=== PATIENT | female | born 1970 | race Caucasian/White ===

== ENCOUNTER → 2018-04-29 | Outpatient (CLI) | payer BC ==
[2018-04-29 13:51] LABS: Basophils % (A) 1 %; Eosinophils # (A) 0.1 k/uL (0-0.7); Eosinophils % (A) 2 %; HCT 43.4 % (34.0-46.0); HGB 13.9 gm/dL (11.4-16.0); Lymphocytes # (A) 1.5 k/uL (1.0-4.8); Lymphocytes % (A) 22 %; MCH 29.6 pg (25.0-35.0); MCHC 32.1 g/dL (31.0-37.0); MCV 92.1 fL (80.0-100.0); Mean Platelet Volume 8.5; Monocytes # (A) 0.2 k/uL (0-1.0); Monocytes % (A) 4 %; Neutrophils # (A) 4.7 k/uL (1.3-7.7); Neutrophils % (A) 71 %; Platelet Count 165 k/uL (150-450); RBC 4.71 m/uL (3.80-5.40); RDW 13.7 % (11.5-15.5); WBC 6.7 k/uL (3.8-10.6)
== END | disposition home or self-care (01) ==
LOC: LABPAT 12:54
PROVIDERS: ATTEND Obstetrics & Gynecology
DX: Z01.812 Encounter for preprocedural laboratory examination (principal)
CPT/HCPCS: 85025

== ENCOUNTER 2018-05-10 06:20 | Day surgery (SDC) | payer BC ==
[2018-05-06 18:05] VITALS: BMI 39.1
--- NOTE | 2018-05-09 16:10 | P.HPOB ---
History of Present Illness H&P Date: 05/09/18 Chief Complaint: Menorrhagia Gina is a 48-year-old female with very heavy vaginal bleeding. Symptoms have been going on for an extended period of time and they're becoming so difficult and heavy that she is unable to function much of the time. Symptoms have progressively worsened dramatically over the last 6 months and her activities of daily daily living are severely impacted. She is scheduled for a D&C with hysteroscopy NovaSure ablation to try and eliminate her symptoms as well as verified no other pathology. Due to the fact that she is a smoker she is unable to do hormone therapy. Risks/benefits/alternatives to a D&C with hysteroscopy and NovaSure were explained to the patient in detail and all questions were answered for her to proceeding to the operating room. She is aware of risk of perforation with potential bowel injury as well as potential other issues including pain and bleeding and infection due to the procedure. Past Medical History Additional Past Medical History / Comment(s): HEAVY MENSES, SEVERE CRAMPS. History of Any Multi-Drug Resistant Organisms: None Reported Past Surgical History: Cholecystectomy Additional Past Surgical History / Comment(s): CERVIAL CONIZATION. Past Anesthesia/Blood Transfusion Reactions: Motion Sickness Smoking Status: Current every day smoker - Past Family History Father Family Medical History: Cancer Mother Family Medical History: Deep Vein Thrombosis (DVT) Medications and Allergies Home Medications Medication Instructions Recorded Confirmed Type Ibuprofen [Motrin Ib] 400 mg PO Q6H PRN 05/06/18 05/06/18 History Allergies Allergy/AdvReac Type Severity Reaction Status Date / Time amoxicillin Allergy Nausea & Verified 05/06/18 17:47 Vomiting Fish Containing Products Allergy Rash/Hives Verified 05/06/18 17:47 [Fish] red dye Allergy TOLD TO Verified 05/06/18 17:47 AVOID Exam Osteopathic Statement: *. No significant issues noted on an osteopathic structural exam other than those noted in the History and Physical/Consult. - OBG Physical Exam Breast: both: normal (no masses) Abdomen: bowel sounds normal, no diffuse tenderness, no bruit present, no guarding noted, no hepatomegaly, no splenomegaly, no mass Vulva: both: normal Vagina: normal moisture, no discharge Cervix: no lesion, no discharge Uterus: normal size, normal contour Adnexa: both: normal Anus/Rectum: normal perianal skin, no rectal mass, no hemorrhoids, heme negative
[~2018-05-10 06:20] MED LIST: DEXAMETHASONE SOD PHOSPHATE 10 MG/ML 1 ML VIAL IV ONE; LACTATED RINGERS 1,000 ML IV SCH; LIDOCAINE 1% 20 ML VIAL (10MG/ML) FOR IV START INTRADERMA PRN; MIDAZOLAM 2 MG/2 ML VIAL IV PRN; Pre Op ABX Message 1 EACH MISC MISCELLANE ONE; SCOPOLAMINE 1.5MG/72HR PATCH TRANSDERM ONE
[2018-05-10] MEDS: ONDANSETRON 4 MG/2 ML VIAL IVP ONE ×2 (06:33→08:24)
[2018-05-10] MEDS ORDERED: PROPOFOL 10 MG/ML 20 ML VIAL IV ONE (07:26)
[2018-05-10] MEDS ORDERED: fentaNYL (PF) 50 MCG/ML 2 ML AMP ONE (07:26)
[2018-05-10] MEDS ORDERED: MIDAZOLAM 2 MG/2 ML VIAL ONE (07:26)
[2018-05-10] MEDS ORDERED: LIDOCAINE 1% INJ 10MG/ML (20 ML MDV) ONE (07:26)
--- NOTE | 2018-05-10 07:57 | P.OP ---
Date of Procedure: 05/10/18 Preoperative Diagnosis: Menorrhagia Postoperative Diagnosis: Same Procedure(s) Performed: D&C with hysteroscopy and NovaSure Anesthesia: ADELAIDA Surgeon: Emre Calderón Estimated Blood Loss (ml): 5 Pathology: other (Uterine curettings) Condition: stable Disposition: same day Operative Findings: Proliferative endometrium and suspected polyp Description of Procedure: Patient was taken to the operating suite where a general anesthetic was found be adequate. She was prepped and draped in the normal sterile fashion and placed in dorsal lithotomy position. Initially weighted speculum was inserted into the vagina and anterior lip of the cervix was identified and grasped with a single-tooth tenaculum. Cervix was then dilated and uterus was sounded to 8 cm. Once this was accomplished camera was inserted. Proliferative endometrium and polyp were noted. Camera was then removed and sharp curettings of endometrium were obtained and sent to pathology for evaluation. Once this was accomplished NovaSure systems inserted with a length of 4 and a width of 2.5 it was tested and enabled and activated. The burn lasted for 2 minutes. At the conclusion of the burn NovaSure system was removed and camera was reinserted with excellent burn noted. Sponge, lap, needle counts were then all correct 2 and all other instruments removed from the vagina. Patient was then taken to the recovery room in stable and satisfactory condition. Plan - Discharge Summary New Discharge Prescriptions: New Ibuprofen [Motrin] 600 mg PO Q6HR PRN #30 tab PRN Reason: Pain No Action Ibuprofen [Motrin Ib] 400 mg PO Q6H PRN PRN Reason: Pain Discharge Medication List Ibuprofen [Motrin Ib] 400 mg PO Q6H PRN 05/06/18 [History] Ibuprofen [Motrin] 600 mg PO Q6HR PRN #30 tab 05/10/18 [Rx] Follow up Appointment(s)/Referral(s): Emre Calderón DO [Doctor of Osteopathic Medicine] - 1 Week Activity/Diet/Wound Care/Special Instructions: No heavy lifting, limit stairs and driving and pelvic rest tonight. If any high temperatures, heavy bleeding, or severe pain call the office
[2018-05-10 08:07] VITALS: TEMP 97
[2018-05-10] MEDS: HYDROmorphone 0.5 MG/0.5 ML SYRINGE IVP PRN ×2 (08:24→08:28)
[2018-05-10] MEDS ORDERED: KETOROLAC 30 MG/ML 1 ML VIAL IVP ONE (08:24)
[2018-05-10] MEDS ORDERED: LACTATED RINGERS 1,000 ML IV ONE (08:33)
[2018-05-10 09:00] VITALS: RESP 18
[2018-05-10] MEDS ORDERED: fentaNYL (PF) 50 MCG/ML 2 ML AMP IVP ONE (09:20)
[2018-05-10] MEDS ORDERED: ONDANSETRON 4 MG/2 ML VIAL IVP ONE (10:14)
[2018-05-10 10:56] VITALS: BP 156/75; PULSE 50
== END 2018-05-10 11:44 | disposition home or self-care (01) ==
LOC: OR 06:20
PROVIDERS: ATTEND Obstetrics & Gynecology
DX: N92.0 Excessive and frequent menstruation with regular cycle (principal); Z88.0 Allergy status to penicillin; Z91.013 Allergy to seafood; Z91.09 Other allergy status, other than to drugs and biological substances; F17.210 Nicotine dependence, cigarettes, uncomplicated
CPT/HCPCS: 81025; 88305; 58563; J2250; J1100; J2405; J2001; J3010; J1885; J2704; J1170

== ENCOUNTER 2019-06-04 16:45 | Emergency (ER) | payer BC, OTHER ==
[2019-06-04 16:52] VITALS: BP 138/81; PULSE 60; RESP 16; TEMP 98.1
[2019-06-04] MEDS ORDERED: DIPH,PERTUS(ACELL)TETVAC-LF 0.5 ML VIAL IM ONE (17:00)
--- NOTE | 2019-06-04 17:13 | ED ---
Wound/Laceration HPI - General Chief Complaint: Wound/Laceration Stated Complaint: [facility] - rt thumb lac Time Seen by Provider: 06/04/19 16:47 Source: patient Mode of arrival: ambulatory Limitations: no limitations - History of Present Illness Initial Comments: 49-year-old female presenting today for chief complaint of laceration to the right thumb. She states she cut her thumb on a piece of dialysis equipment. She denies any blood exposures. Patient states it was a large piece of metal denies foreign body. Patient's age is unsure if any suture repair presents emergency department for evaluation. Unsure of last tetanus. Denies any limitations in range of motion or strength of the digit. Patient states bleeding is controlled. Patient was sent by her work for evaluation. Denies numbness tingling of sensation. - Related Data Home Medications Medication Instructions Recorded Confirmed Ibuprofen [Motrin Ib] 400 mg PO Q6H PRN 05/06/18 05/06/18 Previous Rx's Medication Instructions Recorded Ibuprofen [Motrin] 600 mg PO Q6HR PRN #30 tab 05/10/18 Allergies Allergy/AdvReac Type Severity Reaction Status Date / Time amoxicillin Allergy Nausea & Verified 06/04/19 16:52 Vomiting Fish Containing Products Allergy Rash/Hives Verified 06/04/19 16:52 [Fish] red dye Allergy TOLD TO Verified 06/04/19 16:52 AVOID Review of Systems ROS Statement: Those systems with pertinent positive or pertinent negative responses have been documented in the HPI. ROS Other: All systems not noted in ROS Statement are negative. Past Medical History Past Medical History: No Reported History History of Any Multi-Drug Resistant Organisms: None Reported Past Surgical History: No Surgical Hx Reported Past Psychological History: No Psychological Hx Reported Smoking Status: Current every day smoker Past Alcohol Use History: None Reported Past Drug Use History: None Reported General Exam - General Exam Comments Initial Comments: General: The patient is awake and alert, in no distress, and does not appear acutely ill. Eye: Pupils are equal, round and reactive to light, extra-ocular movements are intact. No nystagmus. There is normal conjunctiva bilaterally. No signs of icterus. Cardiovascular: There is a regular rate and rhythm. No murmur, rub or gallop is appreciated. Respiratory: Lungs are clear to auscultation, respirations are non-labored, breath sounds are equal. No wheezes, stridor, rales, or rhonchi. Musculoskeletal: Normal ROM, no tenderness. Strength 5/5. Sensation intact. Pulses equal bilaterally 2+. Neurological: A&O x 3. CN II-XII intact, There are no obvious motor or sensory deficits. Coordination appears grossly intact. Speech is normal. Skin: Skin is warm and dry and no rashes. 1 cm laceration, superfical, no tendon exposure on lateral aspect of right thumb. No active bleeding. Patient has full range of motion at the MTP DIP PIP joints of all 5 digits of the right hand. No decrease in strength all 5 out of 5. Joint was specifically isolated of the affected digit. Full sensation of both proximal distal to injury site. Capillary refill less than 3 seconds. Psychiatric: Cooperative, appropriate mood & affect, normal judgment. Limitations: no limitations Course Vital Signs 06/04/19 16:47 Temperature 98.1 F Pulse Rate 60 Respiratory 16 Rate Blood Pressure 138/81 O2 Sat by Pulse 98 Oximetry Procedures - Laceration Laceration #1 Consent Obtained: verbal consent Indication: laceration Site: hand Size (cm): 1 Description: linear Depth: simple, single layer Type of Sutures: nylon Size of Sutures: 5-0 Number of Sutures: 3 Technique: simple, interrupted Patient Tolerated Procedure: well, no complications Additional Comments: Given sized laceration patient was given option of lidocaine versus no local anesthetic. Patient preferred no lidocaine. Area was extensively cleansed with iodine and irrigated. Patient tolerate procedure well closed with 3 sutures. Medical Decision Making - Medical Decision Making 49-year-old female presenting for thumb laceration. No evidence of tendon injury on physical examination. Patient neurovascularly intact. Imaging studies negative for osseous injury or foreign body. Tetanus updated. An extensive cleansed and irrigated prior to closure. Patient tolerated procedure well wound edges approximated well. Return parameters and signs of infection discussed. Patient was discharged appearing well with instruction to follow-up in 7 days for suture removal. Disposition Clinical Impression: Laceration of right thumb, Injury of right thumb Disposition: HOME SELF-CARE Condition: Good Instructions (If sedation given, give patient instructions): Care For Your Stitches (ED), Finger Laceration (ED) Additional Instructions: Please use medication as discussed. Please follow-up for suture removal in 7 days. Please return to emergency room if the symptoms increase or worsen or for any other concerns. Is patient prescribed a controlled substance at d/c from ED?: No Referrals: Iris Hernandez MD [Primary Care Provider] - 1-2 days Time of Disposition: 17:12
--- NOTE | 2019-06-04 17:14 | XR ---
PROCEDURE: XR finger RT - 2V DATE AND TIME: 06/04/2019 5:07 PM CLINICAL INDICATION: [facility]; thumb laceration TECHNIQUE: Department protocol COMPARISON: None FINDINGS: There is no fracture or malalignment. The soft tissues are unremarkable. No radiopaque foreign bodies. No soft tissue emphysema. IMPRESSION: NO ACUTE PROCESS.
== END 2019-06-04 17:30 | disposition home or self-care (01) ==
LOC: EC 16:45
DX: S61.021A Laceration with foreign body of right thumb without damage to nail, initial encounter (principal); F17.200 Nicotine dependence, unspecified, uncomplicated; Z88.0 Allergy status to penicillin; Z91.013 Allergy to seafood; Z91.048 Other nonmedicinal substance allergy status; Z23 Encounter for immunization; Y92.69 Other specified industrial and construction area as the place of occurrence of the external cause; Y99.0 Civilian activity done for income or pay; W45.8XXA Other foreign body or object entering through skin, initial encounter
CPT/HCPCS: 12001; 90471; 90715; 99283

== ENCOUNTER → 2020-05-13 | Outpatient (CLI) | payer OTHER ==
--- NOTE | 2020-05-13 12:55 | XR ---
EXAMINATION TYPE: XR chest 2V DATE OF EXAM: 05/13/2020 COMPARISON: NONE HISTORY: R06.02, shortness of breath TECHNIQUE: Frontal and lateral views of the chest are obtained. FINDINGS: There is no focal air space opacity, pleural effusion, or pneumothorax seen. The cardiac silhouette size is within normal limits. The osseous structures are intact. IMPRESSION: No acute cardiopulmonary process.
[2020-05-13 14:12] LABS: Basophils % (A) 0 %; Eosinophils # (A) 0.2 k/uL (0-0.7); Eosinophils % (A) 3 %; HCT 44.9 % (34.0-46.0); HGB 14.7 gm/dL (11.4-16.0); Lymphocytes # (A) 1.3 k/uL (1.0-4.8); Lymphocytes % (A) 22 %; MCH 30.3 pg (25.0-35.0); MCHC 32.6 g/dL (31.0-37.0); MCV 92.9 fL (80.0-100.0); Mean Platelet Volume 10.2; Monocytes # (A) 0.2 k/uL (0-1.0); Monocytes % (A) 4 %; Neutrophils # (A) 4.1 k/uL (1.3-7.7); Neutrophils % (A) 71 %; Platelet Count 157 k/uL (150-450); RBC 4.83 m/uL (3.80-5.40); RDW 13.2 % (11.5-15.5); WBC 5.9 k/uL (3.8-10.6)
[2020-05-13 19:40] LABS: African American GFR (CKD) 118.7 (60.0-200.0); Albumin 3.7 g/dL (3.80-4.90); Albumin/Globulin Ratio 2.06 (1.60-3.17); Anion Gap 4.8 mmol/L (4.00-12.00); BUN/Creat Ratio 15.71 Ratio (12.00-20.00); Calcium 8.5 mg/dL (8.7-10.3); Carbon Dioxide 27.2 mmol/L (21.6-31.8); Globulin 1.8 g/dL (1.6-3.3); Non-African American GFR(CKD) 102.5 (60.0-200.0); Potassium 4.4 mmol/L (3.5-5.5); Total Bilirubin 0.4 mg/dL (0.2-1.2); Total Protein 5.5 g/dL (6.2-8.2)
[2020-05-13 19:49] LABS: T4, Free (Free Thyroxine) 1.1 ng/dL (0.80-1.80)
== END | disposition home or self-care (01) ==
LOC: LABWHC1 11:45
PROVIDERS: ATTEND Internal Medicine
DX: R06.02 Shortness of breath (principal); I10 Essential (primary) hypertension; J44.9 Chronic obstructive pulmonary disease, unspecified; R73.9 Hyperglycemia, unspecified
CPT/HCPCS: 36415; 71046; 80053; 82306; 83036; 84439; 84443; 84481; 85025

== ENCOUNTER → 2022-10-24 | Outpatient (CLI) | payer OTHER ==
[2022-10-24 22:57] LABS: Basophils # (A) 0.03 X 10*3/uL (0.00-0.10); Basophils % (A) 0.5 %; Eosinophils # (A) 0.14 X 10*3/uL (0.04-0.35); Eosinophils % (A) 2.4 %; HCT 46.6 % (37.2-46.3); HGB 14.9 g/dL (12.0-15.0); Immature Grans, Automated 0.2 %; Lymphocytes # (A) 1.73 X 10*3/uL (0.90-5.00); MCH 29.8 pg (27.0-32.0); MCV 93.2 fL (80.0-97.0); Mean Platelet Volume 11.8 fL (9.5-12.2); Monocytes # (A) 0.34 X 10*3/uL (0.20-1.00); Monocytes % (A) 5.9 %; NRBC Per 100 WBC 0 /100 WBCS (0.0-0.0); Neutrophils # (A) 3.51 X 10*3/uL (1.80-7.70); Platelet Count 190 X 10*3/uL (140-440); RDW 13.2 % (11.5-14.5); WBC 5.76 X 10*3/uL (4.50-10.00)
[2022-10-24 23:38] LABS: African American GFR (CKD) 119.2 (60.0-200.0); Anion Gap 9.6 mmol/L (10.00-18.00); Blood Urea Nitrogen 12.1 mg/dL (9.0-27.0); Carbon Dioxide 25.9 mmol/L (20.0-27.5); Non-African American GFR(CKD) 102.9 (60.0-200.0); Potassium 4.5 mmol/L (3.5-5.5)
== END | disposition home or self-care (01) ==
LOC: LABPAT 16:05
PROVIDERS: ATTEND Obstetrics & Gynecology
DX: Z01.812 Encounter for preprocedural laboratory examination (principal); N92.1 Excessive and frequent menstruation with irregular cycle
CPT/HCPCS: 80051; 82565; 82947; 84520; 85025; 87086

== ENCOUNTER 2022-10-31 06:05 | Day surgery (SDC) | payer BC, OTHER ==
[~2022-10-31 06:05] MED LIST changes: -DEXAMETHASONE SOD PHOSPHATE 10 MG/ML 1 ML VIAL IV ONE; +DEXAMETHASONE SOD PHOSPHATE 4 MG/ML 1 ML VIAL IV ONE; -LACTATED RINGERS 1,000 ML IV SCH; +LIDOCAINE 1% (10MG/ML) FOR IV START INTRADERMA PRN; -LIDOCAINE 1% 20 ML VIAL (10MG/ML) FOR IV START INTRADERMA PRN; -MIDAZOLAM 2 MG/2 ML VIAL IV PRN; +ONDANSETRON 4 MG/2 ML VIAL IVP ONE; +SCOPOLAMINE 1 MG/72 HR PATCH TRANSDERM ONE; -SCOPOLAMINE 1.5MG/72HR PATCH TRANSDERM ONE
[2022-10-31] MEDS: LACTATED RINGERS 1,000 ML IV SCH (06:47)
[2022-10-31] MEDS ORDERED: HYDROmorphone 0.5 MG/0.5 ML SYRINGE IVP PRN (07:00)
[2022-10-31] MEDS ORDERED: LIDOCAINE 2% INJ 20 MG/ML (2 ML VIAL) ONE (07:24)
[2022-10-31] MEDS ORDERED: HYDROmorphone (PF) 1 MG/ML ONE (07:24)
[2022-10-31] MEDS ORDERED: NEOSTIGMINE 1 MG/ML 10 ML VIAL ONE (07:24)
[2022-10-31] MEDS ORDERED: SUCCINYLCHOLINE CHLORIDE 200 MG/10 ML VIAL IV ONE (07:24)
[2022-10-31] MEDS ORDERED: GLYCOPYRROLATE 0.2 MG/ML 2 ML VIAL ONE (07:24)
[2022-10-31] MEDS ORDERED: MIDAZOLAM 2 MG/2 ML VIAL ONE (07:24)
[2022-10-31] MEDS ORDERED: ACETAMINOPHEN IV (For NPO) 1,000 MG/100 ML VIAL ONE (07:24)
[2022-10-31] MEDS ORDERED: PROPOFOL 10 MG/ML 20 ML VIAL IV ONE (07:24)
[2022-10-31] MEDS ORDERED: fentaNYL (PF) 50 MCG/ML 2 ML AMP ONE (07:24)
[2022-10-31] MEDS ORDERED: ROCURONIUM 10 MG/ML (5 ML VIAL) IV ONE (07:24)
[2022-10-31] MEDS ORDERED: KETOROLAC 30 MG/ML 1 ML VIAL ONE (07:24)
[2022-10-31] MEDS ORDERED: SODIUM CHLORIDE 0.9% 50 ML with ceFAZolin 2,000 MG IV ONE ×4 (07:29)
[2022-10-31] MEDS ORDERED: BUPIVACAINE (PF) 0.25% 30 ML VIAL SQ ONE ×3 (07:50→09:35)
[2022-10-31] MEDS ORDERED: LACTATED RINGERS 1,000 ML IV ONE (09:34)
[2022-10-31] MEDS ORDERED: METOCLOPRAMIDE 5 MG/ML 2 ML VIAL IVP PRN (09:37)
[2022-10-31] MEDS ORDERED: Acetaminophen-Codeine 300-30mg TAB PO PRN ×2 (09:37)
[2022-10-31] MEDS ORDERED: IBUPROFEN 600 MG TAB PO PRN (09:37)
[2022-10-31] MEDS ORDERED: ONDANSETRON 4 MG/2 ML VIAL IVP PRN (09:37)
[2022-10-31] MEDS ORDERED: SIMETHICONE 80 MG CHEWABLE PO PRN (09:37)
[2022-10-31] MEDS ORDERED: diphenhydrAMINE 50 MG/ML 1 ML VIAL IVP PRN (09:37)
[2022-10-31] MEDS ORDERED: KETOROLAC 15 MG/ML 1 ML VIAL IVP PRN (09:37)
--- NOTE | 2022-10-31 09:54 | P.OP ---
Date of Procedure: 10/31/22 Preoperative Diagnosis: #1. Menometrorrhagia #2. Failed endometrial ablation Postoperative Diagnosis: Same plus #3. Fairly extensive omental adhesive disease Procedure(s) Performed: #1. Laparoscopic lysis of adhesions #2. Da Stephani robotically assisted laparoscopic hysterectomy with bilateral salpingectomy #3. Diagnostic cystoscopy Anesthesia: ADELAIDA Surgeon: Himanshu De La Rosa Hydraulic Dredge Operator #1: Michelle Novoa Estimated Blood Loss (ml): 50 IV fluids (ml): 900 Urine output (ml): 200 Pathology: other (Uterus and bilateral fallopian tubes) Condition: stable Disposition: PACU Operative Findings: Preoperative pelvic examination demonstrated a roughly 5 week anteverted mobile normal shaped uterus with normal adnexa bilaterally. Intraoperatively there was noted be fairly extensive adhesions between the omentum and the areas of previously placed laparoscopic ports from her laparoscopic cholecystectomy. I was able to safely place all of the ports for my case and then placed the camera and one of the lateral ports and take down the adhesions sharply with the monopolar cautery scissors which freed up the entire abdomen. In the pelvis, there was evidence of bilateral tubal ligation. The uterus appeared to be bulky and consistent with probable adenomyosis but otherwise there were no pathologic findings. The ovaries appeared normal bilaterally. Following the procedure, the bilateral ureteral jets were seen and the bladder appeared undamaged both from a cystoscopic and laparoscopic perspective. Description of Procedure: The patient was prepped and draped in usual fashion after general endotracheal anesthesia was administered by the anesthesiologist. A weighted speculum was placed and the bladder was catheterized with a Ambrocio catheter. The anterior lip the cervix was grasped with a single-tooth tenaculum and uterus sounded to approximately 8-9 cm. Serial dilation was carried out to admit the Vesicare uterine manipulator with a large cup. The manipulator was then placed in standard fashion without difficulty and attention turned to the abdomen. A site was selected in the midline just at the umbilicus where previous incision had been made allowing an 8 mm incision and the same scar. This allowed insertion of an optical da Stephani port under direct visualization without difficulty. A pneumoperitoneum was then infused and steep Trendelenburg positioning and employed. A site was selected approximately 10-12 cm lateral on the patient's right side and 2-3 cm inferior to the optical port where an 8 mm incision was made in the transverse plane allowing insertion of an 8 mm da Stephani port under direct visualization without difficulty. A similar port was placed in the left lower quadrant. A site was selected approximately 3-4 synovators above the optical port and equidistant from that port and the left lower quadrant port were 10 mm incision was made in the transverse plane allowing insertion of an optical port under direct visualization. Throughout the entire process it was clear that there were number of omental adhesions and this would create difficulty for the esol teacher assistant to help and also difficulty for visualization as some of them were draped in and around the optical port. As a result the scope was transferred to the left lower quadrant port and a monopolar laparoscopic cautery scissors placed into the right lower port. I was able to take down all of the adhesions at their abdominal wall insertion freeing all 4 ports entirely. The scissors were set aside and the robot was docked to the patient. The left arm was loaded with a [place] bipolar cautery scissors while the right arm was armed with a laparoscopic cautery scissors. I then presented to the console. There appeared to be a portion of fallopian tube invested on top of the ovary on the left side was removed sharply but was then discovered to have been a hemorrhagic ovarian cyst. A portion of the ovarian wall was likely sent with the specimen. The fimbriated end of the fallopian tube was then identified. There was a large gap in the fallopian tube where the entire isthmic portion was absent. The left fallopian tube was elevated and removed sharply with the cautery scissors and then the segment of fallopian tube removed through the esol teacher assistant port. A similar operation was carried out on the right side without difficulty. The utero-ovarian ligament on the left side was then cauterized thoroughly with the [place] bipolar cautery forceps and divided sharply with the cautery scissors. This dissection was carried up and through the round ligament on that side at which time the bladder flap was created across the midline and the dissection and reflection of the bladder begun. Uterine vasculature was then skeletonized to some extent and ultimately cauterized. Attention was then turned to the right side where similar operations were carried out. The bladder flap was connected and the bladder thoroughly reflected. The uterine vascular which was again skeletonized and the vessels identified and cauterized. Uterus was noted to be blanched at that time. I did return to the left side to make certain that the vessels on that side were adequately cauterized as well. At this point the vaginal cup was quite apparent and the vagina was packed with a laparotomy sponge. Using the cautery scissors, the vaginal cuff was opened up along the margin of the cervical cup circumferentially to divide the uterus from the patient. The uterine manipulator unfortunately itself from the uterus. As a result, a ring forceps was passed through the apex of the vagina and the cervix and guided into its grasp allowing it to be removed without further difficulty. The scissors were replaced with a laparoscopic suturing device and a stitch of 0 Stratafix was passed into the abdomen. The stitch was utilized to close the vaginal cuff from the right side to the left side cinching down each pass of the stitch in standard fashion with 2 stitches brought backwards towards the midline from the left side. The stitch was then removed from the abdomen. Suction irrigation was carried out and hemostasis appeared to be excellent. I then returned to the patient and remove the Ambrocio catheter, placed a rigid cystoscope and filled the bladder with normal saline. The dome of the bladder was noted to be normal from both laparoscopic and hysteroscopic perspective. The bilateral ureteral elixir seen to be peristalsing. The scope was removed and the catheter replaced. The robot was undocked and all the ports were removed. The pneumoperitoneum was thoroughly evacuated through the port sites and the incisions were closed with interrupted subcuticular stitches of 4-0 Vicryl followed by half-inch Steri- Strips placed with Mastisol. The 4 sites were infused with a total of 10 mL of half percent Marcaine without epinephrine, equally divided between the 4 sites. All sponge, instrument, needle counts were correct. Estimated blood loss for the case was approximately 50 mL. There were no complications. The patient tolerated the procedure well and proceeded to the recovery room in stable condition.
[2022-10-31] MEDS ORDERED: SENNOSIDES-DOCUSATE SODIUM 1 EACH TAB PO SCH (21:00)
[2022-11-01] MEDS: LACTATED RINGERS 1,000 ML IV SCH ×3 (03:55→06:28)
[2022-11-01 08:03] VITALS: BP 142/86; PULSE 66; RESP 16; TEMP 98.3
--- NOTE | 2022-11-01 08:22 | P.DS ---
Providers Expected date of discharge: 11/01/22 Attending physician: Himanshu De La Rosa Primary care physician: Thuy Mac - Discharge Diagnosis(es) (1) Menometrorrhagia Current Visit: Yes Status: Acute Hospital Course: the patient is a 52-year-old who presented to the office with increasing menometrorrhagia. She had previously undergone endometrial ablation which is gradually field over time and now has bleeding that is interruptive of lifestyle. She has a tubal ligation in place and is not a candidate for hormonal intervention. She requests definitive therapy with hysterectomy. Her anatomy dictated that a da Stephani approach was indicated. She therefore was taken the operating room where she underwent da Stephani robotically assisted laparoscopic hysterectomy with bilateral salpingectomy. She additionally had fairly extensive abdominal adhesions from the omentum to previous surgical sites for cholecystectomy which were lysed intraoperatively. her postoperative course was essentially unremarkable with vital signs or any stable and her temperature was afebrile throughout. She did have some early nausea following anesthesia. This resolved on day of surgery. She was tolerating regular diet by the morning of postoperative day #1 and performing all activities of daily living. She was therefore discharged home to follow-up in the office in 2 weeks for an incision check and 8 weeks routinely. Discharge instructions included calling for any significantly increased bleeding, fever, pain, incisional complaints, GI concerns, or anything else that concerned her. She was additionally instructed to have nothing in the vagina for at least 8 weeks time to include intercourse. She understood her instructions and agrees to follow up as noted above. Discharge medications included any normal home medications plus a prescription for Tylenol 3, 1-2 by mouth every 6 hours when necessary pain, #20 dispensed with no refills. Discharge hemoglobin and hematocrit are pending at the time of this dictation. Procedures: #1. Laparoscopic lysis of adhesions #2. Da Stephani robotically assisted laparoscopic hysterectomy with bilateral salpingectomy #3. Diagnostic cystoscopy Patient Condition at Discharge: Stable Plan - Discharge Summary Discharge Rx Participant: Yes New Discharge Prescriptions: No Action Atorvastatin [Lipitor] 40 mg PO HS Discharge Medication List Atorvastatin [Lipitor] 40 mg PO HS 10/30/22 [History] Follow up Appointment(s)/Referral(s): Himanshu De La Rosa MD [STAFF PHYSICIAN] - 2 Weeks Discharge Disposition: HOME SELF-CARE
[2022-11-01 08:54] LABS: Basophils % (A) 0 %; Eosinophils # (A) 0.2 k/uL (0-0.7); Eosinophils % (A) 2 %; HGB 13.6 gm/dL (11.4-16.0); Lymphocytes # (A) 1.3 k/uL (1.0-4.8); Lymphocytes % (A) 11 %; MCH 30.8 pg (25.0-35.0); MCV 90.5 fL (80.0-100.0); Mean Platelet Volume 10.5; Monocytes # (A) 0.3 k/uL (0-1.0); Monocytes % (A) 2 %; Neutrophils # (A) 10.2 k/uL (1.3-7.7); Neutrophils % (A) 84 %; Platelet Count 143 k/uL (150-450); RBC 4.42 m/uL (3.80-5.40); RDW 13.1 % (11.5-15.5); WBC 12.1 k/uL (3.8-10.6)
== END 2022-11-01 08:40 | disposition home or self-care (01) ==
LOC: OR 06:05 → 4FBP 09:53 → OR 11-01 08:40
PROVIDERS: ATTEND Obstetrics & Gynecology
DX: D25.1 Intramural leiomyoma of uterus (principal); N80.03 Adenomyosis of the uterus; N72 Inflammatory disease of cervix uteri; N92.1 Excessive and frequent menstruation with irregular cycle; Z98.890 Other specified postprocedural states
CPT/HCPCS: 58571; 81025; 86900; 86901; 85025; 86850; 88307; J2250; J0330; J1100; J2710; J2405; J0690; J3010; J1885 ×2; J1170; J0131; J2704; J2001

== ENCOUNTER 2024-05-06 08:54 | Day surgery (SDC) | payer BC, OTHER ==
[2024-05-06] MEDS: IV FLUID CONTINUATION 1,000 ML IV ONE (09:09)
[2024-05-06 09:15] VITALS: RESP 16; TEMP 97.5
[2024-05-06] MEDS: LACTATED RINGERS 1,000 ML IV SCH (09:21)
[2024-05-06] MEDS ORDERED: LIDOCAINE 2% (PF) 20 MG/ML 5 ML VIAL ONE (10:01)
[2024-05-06] MEDS ORDERED: PROPOFOL 10 MG/ML 20 ML VIAL IV ONE (10:01)
--- NOTE | 2024-05-06 10:06 | P.GSHP ---
History of Present Illness H&P Date: 05/06/24 Chief Complaint: GERD, epigastric pain, screening 54-year-old female here for EGD and colonoscopy. Patient with complaints of burning epigastric pain. Mild reflux. No bowel complaints. Family history of colon cancer in her father. She has not had a previous colonoscopy. Past Medical History Past Medical History: GERD/Reflux, Hyperlipidemia Additional Past Medical History / Comment(s): hx. cervical cancer. heartburn ,burning feeling in abdomen. History of Any Multi-Drug Resistant Organisms: None Reported Past Surgical History: Cholecystectomy, Hysterectomy Past Anesthesia/Blood Transfusion Reactions: Postoperative Nausea & Vomiting (PONV) Additional Past Anesthesia/Blood Transfusion Reaction / Comment(s): one time PONV Smoking Status: Current every day smoker - Past Family History Mother Family Medical History: Diabetes Mellitus, Deep Vein Thrombosis (DVT) Additional Family Medical History / Comment(s): amputee, vascular issues Father Family Medical History: Diabetes Mellitus Additional Family Medical History / Comment(s): amputee Medications and Allergies Home Medications Medication Instructions Recorded Confirmed Type Atorvastatin [Lipitor] 40 mg PO HS 10/30/22 05/06/24 History Allergies Allergy/AdvReac Type Severity Reaction Status Date / Time amoxicillin Allergy Nausea & Verified 05/06/24 09:15 Vomiting Fish Containing Products Allergy Rash/Hives Verified 05/06/24 09:15 [Fish] red dye Allergy TOLD TO Verified 05/06/24 09:15 AVOID Surgical - Exam Vital Signs Temp Pulse Resp BP Pulse Ox 97.5 F L 59 L 16 132/66 96 05/06/24 09:14 05/06/24 09:14 05/06/24 09:14 05/06/24 09:14 05/06/24 09:14 Physical exam: General: Well-developed, well-nourished HEENT: Normocephalic, sclerae nonicteric Abdomen: Nontender, nondistended Extremities: No edema Neuro: Alert and oriented Assessment and Plan (1) Colon cancer screening Narrative/Plan: Will proceed with upper and lower endoscopy. Current Visit: Yes Status: Acute Code(s): Z12.11 - ENCOUNTER FOR SCREENING FOR MALIGNANT NEOPLASM OF COLON SNOMED Code(s): 889476986
--- NOTE | 2024-05-06 10:20 | P.PCN ---
Date of Procedure: 05/06/24 Procedure(s) Performed: PREOPERATIVE DIAGNOSIS: GERD, epigastric pain, screening, family history of colon cancer POSTOPERATIVE DIAGNOSIS: Mild gastritis, diverticulosis PROCEDURE: 1. EGD with biopsy 2. Colonoscopy ANESTHESIA: MAC SURGEON: Henry Mart M.D. SPECIMENS: Antrum ENDOSCOPIC PROCEDURE: The patient was on the endoscopy table in the left decubitus position. The Olympus gastroscope was inserted into the oropharynx and passed under direct visualization to the region of the third portion of the duodenum. From that point the scope was slowly withdrawn inspecting all surfaces carefully. There were no neoplastic inflammatory or polypoid lesions throughout the duodenum. The pylorus was widely patent. The stomach was carefully inspected. There was mild gastritis present. A biopsy of the antrum took place to rule out H. pylori. Retroflexion revealed a normal hiatus. The esophagus was then carefully examined. There were no neoplastic inflammatory or polypoid lesions throughout the visualized esophagus. The patient was kept on the endoscopy table in the left decubitus position. The Olympus colonoscope was inserted into the anus and passed under direct visualization to the base of the cecum. The appendiceal orifice was visualized. From that point the scope was slowly withdrawn inspecting all surfaces carefully. There were no neoplastic inflammatory or polypoid lesions throughout the cecum, ascending, transverse, descending, sigmoid and rectum. There was mild scattered diverticulosis noted. Digital rectal examination was normal. The patient was taken to the recovery room in stable condition per anesthesia guidelines. RECOMMENDATIONS: Antiacid therapy for epigastric pain, resume diet. Repeat colonoscopy 5 years given family history of colon cancer in parent.
[2024-05-06 10:39] VITALS: BP 148/62; PULSE 56
== END 2024-05-06 11:15 | disposition home or self-care (01) ==
LOC: ORWHC2ENDO 08:54
PROVIDERS: ATTEND Surgery
DX: Z12.11 Encounter for screening for malignant neoplasm of colon (principal); K21.9 Gastro-esophageal reflux disease without esophagitis; E78.5 Hyperlipidemia, unspecified; K57.30 Diverticulosis of large intestine without perforation or abscess without bleeding; K29.70 Gastritis, unspecified, without bleeding; F17.200 Nicotine dependence, unspecified, uncomplicated; Z80.0 Family history of malignant neoplasm of digestive organs; Z85.41 Personal history of malignant neoplasm of cervix uteri; Z90.49 Acquired absence of other specified parts of digestive tract; Z90.710 Acquired absence of both cervix and uterus
CPT/HCPCS: 88305; 45378; 43239; J2704; J2001

== ENCOUNTER → 2025-03-25 | Outpatient (CLI) | payer MEDICAID ==
--- NOTE | 2025-03-25 12:41 | XR ---
EXAMINATION TYPE: XR chest 2V DATE OF EXAM: 03/25/2025 10:50 AM COMPARISON: 05/13/2020 CLINICAL INDICATION: Female, 54 years old with history of smoker, shortness of breath TECHNIQUE: Frontal and lateral views FINDINGS: The cardiomediastinal silhouette, aorta, and pulmonary vasculature are within normal limits. Lungs an d pleural spaces are clear. IMPRESSION: No acute cardiopulmonary process. [facility], , 03/25/2025 12:39 PM
[2025-03-25 15:52] LABS: HCT 50.4 % (37.2-46.3); HGB 16.3 g/dL (12.0-15.0); MCH 29.6 pg (27.0-32.0); MCHC 32.3 g/dL (32.0-37.0); MCV 91.5 FL (80.0-97.0); Mean Platelet Volume 11.7 FL (9.5-12.2); NRBC Per 100 WBC 0 X 10*3/uL (0.00-0.01); Platelet Count 193 X 10*3/uL (140-440); RBC 5.51 X 10*6/uL (4.10-5.20); RDW 13.5 % (11.5-14.5); WBC 7.21 X 10*3/uL (4.50-10.00)
[2025-03-25 16:05] LABS: ALT 18 U/L (8-44); AST 16 U/L (13-35); Albumin 4.1 g/dL (3.8-4.9); Albumin/Globulin Ratio 1.64 Ratio (1.60-3.17); Alkaline Phosphatase 104 U/L (41-126); BUN/Creat Ratio 16.67 Ratio (12.00-20.00); Calcium 9.4 mg/dL (8.7-10.3); Carbon Dioxide 24.6 mmol/L (21.6-31.8); Chloride 106 mmol/L (96-109); Chol/HDL Ratio 9.51 Ratio; Globulin 2.5 g/dL (1.6-3.3); Glucose 107 mg/dL (70-110); LDL Cholesterol,Calculated 210.7 mg/dL (0.0-131.0); Potassium 4.7 mmol/L (3.5-5.5); Sodium 141 mmol/L (135-145); Total Bilirubin 0.3 mg/dL (0.3-1.2); Total Protein 6.6 g/dL (6.2-8.2)
== END | disposition home or self-care (01) ==
LOC: LABWHC1 08:12
PROVIDERS: ATTEND Physician Assistant Medical
DX: Z12.2 Encounter for screening for malignant neoplasm of respiratory organs (principal); Z87.891 Personal history of nicotine dependence
CPT/HCPCS: 36415; 71046; 80053; 80061; 83036; 84443; 85027